=== PATIENT | male | born 1970 | race Caucasian/White ===

== ENCOUNTER 2024-05-25 07:46 | Outpatient (CLI) | payer BC ==
[2024-05-25 12:18] LABS: BASOPHILS # (AUTO) 0.1 10^3/uL (0.0-0.1); BASOPHILS % (AUTO) 0.8 %; EOSINOPHILS # (AUTO) 0.3 10^3/uL (0.0-0.7); EOSINOPHILS % (AUTO) 4.2 %; HCT - HEMATOCRIT 38.4 % (42.0-52.0); HGB - HEMOGLOBIN 12.7 g/dL (14.0-18.0); LYMPHOCYTES # (AUTO) 1.7 10^3/uL (1.5-3.5); MEAN CORPUSCULAR HGB CONC 33.1 g/dL (32.0-36.0); MEAN CORPUSCULAR VOLUME 81.5 fL (80.0-94.0); MEAN PLATELET VOLUME 12.3 fL (7.4-11.4); MONOCYTES # (AUTO) 0.4 10^3/uL (0.0-1.0); MONOCYTES % (AUTO) 6.4 %; NEUTROPHILS % (AUTO) 62.3 %; PLT - PLATELET COUNT 183 10^3/uL (130-450); RED BLOOD COUNT 4.71 10^6/uL (4.70-6.10); WHITE BLOOD COUNT 6.5 x10^3/uL (4.8-10.8)
[2024-05-25 12:38] LABS: ALBUMIN 4.2 g/dL (3.2-5.5); ALBUMIN/GLOBULIN RATIO 1.6 (1.0-2.2); ALKALINE PHOSPHATASE 62 IU/L (42-121); ALT ALANINE AMINOTRANSFERASE 18 IU/L (10-60); AST ASPARTATE AMINOTRANSFERASE 16 IU/L (10-42); BILIRUBIN,TOTAL 0.7 mg/dL (0.2-1.0); BUN - BLOOD UREA NITROGEN 9 mg/dL (6-20); CALCIUM 9.1 mg/dL (8.5-10.3); CARBON DIOXIDE - CO2 30 mmol/L (21-32); CHLORIDE 105 mmol/L (101-111); CHOL/HDL RATIO 2.8 (<5.0); CHOLESTEROL 117 mg/dL; CREATININE 0.6 mg/dL (0.6-1.3); GFR - MDRD 140 (>89); GLUCOSE 132 mg/dL (74-104); HDL CHOLESTEROL 42 mg/dL; LDL CHOLESTEROL,CALCULATED 57 mg/dL; LDL/HDL RATIO 1.4 (<3.6); POTASSIUM 3.8 mmol/L (3.5-4.5); SODIUM 140 mmol/L (135-145); TOTAL PROTEIN 6.8 g/dL (6.4-8.9); TRIGLYCERIDES 88 mg/dL; VLDL CHOLESTEROL 18 mg/dL
[2024-05-25 12:45] LABS: THYROID STIMULATING HORMONE 1.75 uIU/mL (0.34-5.60)
[2024-05-25 13:07] LABS: ESTIMATED AVERAGE GLUCOSE 146 mg/dL (70-100); HEMOGLOBIN A1c% 6.7 % (4.27-6.07)
== END 2024-05-25 07:47 | disposition home or self-care (01) ==
LOC: LAB.N 07:46
DX: G62.9 Polyneuropathy, unspecified (principal); Z12.5 Encounter for screening for malignant neoplasm of prostate; N52.9 Male erectile dysfunction, unspecified
CPT/HCPCS: 36415; 80053; 80061; 83036; 83721; 84153; 84403; 84443; 85025